=== PATIENT | male | born 1965 | race Caucasian/White ===

== ENCOUNTER 2019-09-04 08:55 | Day surgery (SDC) | payer OTHER ==
[~2019-09-04] VITALS: Ht 167.6 cm; Wt 86.4 kg
[~2019-09-04 08:55] MED LIST: GEMF600T5 PO
[2019-09-04] MEDS ORDERED: KETOROLAC TROMETHAMINE 60 MG/2 ML VIAL IM ONE (08:56)
[2019-09-04] MEDS ORDERED: LIDOCAINE/PF 2% 5 ML VIAL IM ONE (08:56)
[2019-09-04] MEDS ORDERED: FentaNYL CITRATE-PF 100 MCG/2 ML VIAL IVP ONE (08:56)
[2019-09-04] MEDS ORDERED: DEXAMETHASONE SOD PHOS 4 MG/ML VIAL IVP ONE (08:56)
[2019-09-04] MEDS ORDERED: MIDAZOLAM HCL 2 MG/2 ML VIAL IVP ONE (08:56)
[2019-09-04] MEDS ORDERED: METOCLOPRAMIDE HCL 5 MG/ML 2 ML VIAL IVP ONE (08:56)
[2019-09-04] MEDS ORDERED: PROPOFOL 1% 20 ML VIAL IVP ONE (08:56)
[2019-09-04] MEDS ORDERED: ONDANSETRON HCL 4 MG/2 ML VIAL IVP ONE (08:56)
[2019-09-04] MEDS ORDERED: CeFAZolin 2 GM/DEXTROSE 50 ML IV ONE ×2 (09:00→10:16)
[2019-09-04] MEDS ORDERED: RINGERS SOLUTION,LACTATED 1,000 ML IV ONE ×2 (09:00→09:36)
[2019-09-04] MEDS ORDERED: BUPIVACAINE HCL/PF 0.25% 30 ML VIAL ONE (10:28)
[2019-09-04] MEDS ORDERED: BUPIVACAINE 0.25%/EPI 1:200,000/PF 10 ML VIAL ONE (12:20)
[2019-09-04] MEDS ORDERED: HYDROmorphone 2 MG/ML SYRINGE IVP PRN (12:30)
[2019-09-04] MEDS ORDERED: MEPERIDINE-PF 25 MG/ML VIAL IVP PRN (12:30)
[2019-09-04] MEDS ORDERED: FentaNYL CITRATE-PF 100 MCG/2 ML VIAL IVP PRN (12:30)
[2019-09-04] MEDS ORDERED: RINGERS SOLUTION,LACTATED 500 ML IV ONE (12:53)
[2019-09-04] MEDS ORDERED: OXYGEN THERAPY IH SCH (20:00)
== END 2019-09-04 14:45 | disposition home or self-care (01) ==
LOC: SURGERY 08:55
PROVIDERS: ATTEND Surgery
DX: R19.09 Other intra-abdominal and pelvic swelling, mass and lump (principal); D17.1 Benign lipomatous neoplasm of skin and subcutaneous tissue of trunk; F17.210 Nicotine dependence, cigarettes, uncomplicated; Z72.89 Other problems related to lifestyle; E78.00 Pure hypercholesterolemia, unspecified; Z98.890 Other specified postprocedural states; Z79.899 Other long term (current) drug therapy; Z11.59 Encounter for screening for other viral diseases
CPT/HCPCS: 22901; 88304; J0690 ×2; J1100; J1885; J2250; J2405; J2704; J2765; J3010; J3490 ×3; J7120 ×2; U0003